=== PATIENT | male | born 1950 | race Caucasian/White ===

== ENCOUNTER 2016-11-24 02:08 | Inpatient (IN) ==
[2016-11-24] MEDS ORDERED: Naloxone 0.4 MG/ML INJ IVP PRN (05:36)
[2016-11-24] MEDS ORDERED: Ondansetron 4 MG/2 ML VIAL IVP PRN (05:36)
[2016-11-24] MEDS ORDERED: *HR* Morphine 2 MG/ML SYRINGE IVP PRN (05:36)
[2016-11-24] MEDS ORDERED: Acetaminophen 325 MG TABLET PO PRN (05:36)
[2016-11-24] MEDS ORDERED: Famotidine 20 MG/2 ML VIAL IVP SCH (06:00)
[2016-11-24 07:21] LABS: INR 1.4; Prothrombin Time 15.3 Seconds (9.4-12.1)
[2016-11-24 07:22] LABS: Basophils % 0.2 %; Hematocrit 40.1 % (37.5-50.1); Hemoglobin 13.9 g/dL (12.9-16.9); Immature Granulocytes % 0.8 % (0-4); Lymphocytes # 0.4 K/mcL (0.6-4.6); Lymphocytes % 3.6 %; Mean Corpuscular HGB Conc 34.7 g/dL (31.6-35.5); Mean Corpuscular Hemoglobin 31.9 pg (28.0-33.3); Monocytes # 0.2 K/mcL (0.0-1.3); Monocytes % 1.5 %; Neutrophils # 11.1 K/mcL (1.6-8.9); Platelet Count 225 K/mcL (140-400); Red Blood Count 4.36 M/mcL (4.19-5.50); Red Cell Distribution Width 13.6 % (11.5-14.5); Segmented Neutrophils % 93.9 %
[2016-11-24 07:40] LABS: BUN/Creatinine Ratio 15 (6-26); Blood Urea Nitrogen 15 mg/dL (8-26); Calcium 9.3 mg/dL (8.6-10.8); Carbon Dioxide 28 mEq/L (19-29); Chloride 94 mEq/L (98-109); Glucose 197 mg/dL (70-99); Osmolality,Calculated 278 (280-300); Potassium 3.7 mEq/L (3.5-4.5); Sodium 131 mEq/L (136-145); eGFR For African Americans > 60 (> 60); eGFR For Non-African Americans > 60 (> 60)
[2016-11-24 07:43] LABS: Chol/HDL Ratio 4.4 (0-4.9); Magnesium 2.2 mg/dL (1.6-2.6)
[2016-11-24] MEDS: 0.9 % Sodium Chloride 1,000 ML IVC SCH ×3 (08:12→11:38)
[2016-11-24] MEDS: *HR* Heparin 5,000 UNIT/ML VIAL SQ SCH ×2 (08:13→17:32)
[2016-11-24] MEDS: Aspirin 81 MG TAB.CHEW PO SCH (08:13)
[2016-11-24] MEDS: Ipratropium/Albuterol Neb 3 ML IH SCH ×5 (08:38→23:46)
--- NOTE | 2016-11-24 09:06 | Internal Med History&Physical ---
Date of Encounter: 11/24/16 Time of Encounter: 09:05 Assessment and Plan (1) DVT prophylaxis Current visit: Yes Status: Acute (2) Sepsis Current visit: Yes Status: Acute Diagnosed based on tachycardia, tachypnea, elevated WBC and pneumonia. Blood cultures drawn at [facility], follow-up results. Check lactic acid. We will provide antibiotic coverage for community-acquired pneumonia. Qualifiers: Sepsis type: sepsis due to unspecified organism Qualified Code(s): A41.9 - Sepsis, unspecified organism (3) Acute exacerbation of chronic obstructive airways disease Current visit: No Status: Acute Inhaled albuterol and ipratropium. Start IV Solu-Medrol. (4) Lingular pneumonia Current visit: No Status: Acute Ceftriaxone and azithromycin. Check Legionella and streptococcal antigens. Check sputum culture. (5) GERD (gastroesophageal reflux disease) Current visit: Yes Status: Acute Start oral Pepcid. Qualifiers: Esophagitis presence: without esophagitis Qualified Code(s): K21.9 - Gastro -esophageal reflux disease without esophagitis (6) Acute respiratory failure with hypoxia Current visit: Yes Status: Acute Oxygen by nasal cannula at maintain saturation above 92%. Check ambulatory oxygen saturation and home oxygen requirements. (7) Tobacco abuse Current visit: Yes Status: Acute I provided smoking cessation counseling. Internal Medicine - H&P: HPI Chief complaint: Shortness of breath Admitted From: Intrahospital Transfer Plans for Post Hospital Care: Home History of present illness: Mr. Rojas is a 66 year old male with past medical history significant for COPD who was transferred from [facility] where he presented for evaluation of shortness of breath. He reports worsening shortness of breath for the last 5 days, today intensity was severe, described as "it can get the air out because of the mucus". Associated with cough sometimes productive of small amounts of green phlegm. Associated with chest pain described as lower left rib cage pain worse with coughing. Denies subjective fevers and chills. Per chart review of [place] his oxygen saturation was 88% on room air. He required 5 L of oxygen by nasal cannula to bring saturation within 93-95 range. He does not use home oxygen. A 10 point review of systems was negative except as above. Past medical history COPD Family history pertinent for appendicular cancer in the patient's father and CAD in the patient's mother Social history: He currently smokes 3-4 cigarettes a day, usually a 10 cigarette per day smoker. Denies alcohol abuse and IV drug use. Past Med Surg Social Fam HX - Past Medical History Medical history: COPD, GERD, valvular heart disease Psychiatric history: no psych history - Social History Smoking Status: Current every day smoker Smokeless Tobacco Status: No Alcohol use: none Drug use: none Internal Medicine - H&P: Meds Albuterol Sulfate [Ventolin Hfa] 18 gm IH Q2H PRN 11/24/16 [History] Budesonide/Formoterol 160/4.5 [Symbicort 160/4.5] 1 puff IH QID 11/24/16 [ History] Ipratropium [Atrovent Inhaler] 0 gm IH Q6HR 11/24/16 [History] 3 Allergy/AdvReac Type Severity Reaction Status Date / Time No Known Allergies Allergy Verified 11/24/16 00:57 All Systems PM: A 10-system review of systems was performed and is negative for pertinent findings except as documented above in the HPI. - Constitutional Vitals: Temp Pulse Resp BP Pulse Ox 97.9 F 83 18 105/64 96 11/24/16 05:49 11/24/16 05:49 11/24/16 05:49 11/24/16 05:49 11/24/16 05:49 General appearance: Present: A&O X 3, no acute distress - Eye Eye exam: Present: PERRL, conjuntiva pink, sclera anicteric Pupils: Present: PERRL - Respiratory Respiratory exam: Present: prolonged expiratory phase, wheezes. Absent: accessory muscle use, rales, rhonchi - Cardiovascular Cardiovascular exam: Present: RRR, +S1, +S2. Absent: diastolic murmur, gallop, rubs, systolic murmur - GI/Abdominal GI/Abdominal exam: Present: normal bowel sounds, soft, no peritoneal signs. Absent: distended, tenderness - Extremities Exam Extremities exam: Present: warm, radial pulses palpable and symmetrical. Absent : calf tenderness, cyanotic, pedal edema - Neurological Exam Neurological exam: Present: CN II-XII intact, oriented X3, no focal deficits. Absent: pronater drift, facial droop, speech deficit - Skin Skin exam: Present: dry, intact Internal Med - H&P Results - Labs CBC & Chem 7: 11/24/16 06:34 11/24/16 06:34 Labs: Short CBC 11/24/16 Range/Units 06:34 WBC 11.9 H (4.3-11.1) K/mcL Hgb 13.9 (12.9-16.9) g/dL Hct 40.1 (37.5-50.1) % Plt Count 225 (140-400) K/mcL Neutrophils # 11.1 H (1.6-8.9) K/mcL BMP 11/24/16 06:34 Sodium 131 L Potassium 3.7 Chloride 94 L Carbon Dioxide 28 BUN 15 Creatinine 0.99 Glucose 197 H Calcium 9.3 Cardiac Enzymes 11/24/16 Range/Units 06:34 Troponin I 0.02 (0-0.03) ng/mL - Impressions Chest x-ray at [facility] personally reviewed. Findings consistent with lingular infiltrate. No pleural effusion. No pneumothorax. Normal heart size.
[2016-11-24] MEDS ORDERED: Azithromycin 500 MG in D5% in Water 250 ML IVPB SCH ×2 (10:00→11:00)
[2016-11-24] MEDS ORDERED: Famotidine 20 MG TABLET PO SCH (10:45)
[2016-11-24] MEDS: Budesonide/Formoterol 160/4.5 MDI IH SCH ×2 (11:16→20:14)
[2016-11-24] MEDS: methylPREDNISolone 125 MG/2 ML VIAL IVP SCH ×3 (11:37→23:43)
[2016-11-24] MEDS: Menthol 9.1 MG LOZENGE PO PRN ×2 (12:54→17:35)
[2016-11-24] MEDS: Famotidine 20 MG TABLET PO SCH (20:36)
[2016-11-25] MEDS: Ipratropium/Albuterol Neb 3 ML IH SCH ×6 (03:42→23:14)
[2016-11-25] MEDS: *HR* Heparin 5,000 UNIT/ML VIAL SQ SCH ×2 (05:24→17:32)
[2016-11-25] MEDS: methylPREDNISolone 125 MG/2 ML VIAL IVP SCH ×3 (05:24→23:50)
[2016-11-25] MEDS: 0.9 % Sodium Chloride 1,000 ML IVC SCH ×2 (05:30→22:12)
[2016-11-25] MEDS ORDERED: *HR* Dextrose 50 % in Water (Syg) 50 ML SYRINGE IVP PRN (07:29)
[2016-11-25] MEDS ORDERED: Dextrose Gel 15 GM PO PRN ×2 (07:29)
[2016-11-25] MEDS ORDERED: D5% in Water 1,000 ML IVC PRN (07:29)
[2016-11-25] MEDS: Budesonide/Formoterol 160/4.5 MDI IH SCH ×2 (08:01→20:15)
[2016-11-25 08:56] LABS: Basophils % 0.1 %; Hematocrit 36.7 % (37.5-50.1); Hemoglobin 12.6 g/dL (12.9-16.9); Immature Platelets 4.3 % (1.1-6.1); Lymphocytes # 0.6 K/mcL (0.6-4.6); Lymphocytes % 3.4 %; Mean Corpuscular HGB Conc 34.3 g/dL (31.6-35.5); Mean Corpuscular Hemoglobin 32.3 pg (28.0-33.3); Mean Corpuscular Volume 94.1 fL (83.0-100.0); Mean Platelet Volume 9.9 fL (9.4-12.4); Monocytes # 0.5 K/mcL (0.0-1.3); Monocytes % 2.8 %; Neutrophils # 15.4 K/mcL (1.6-8.9); Platelet Count 220 K/mcL (140-400); Segmented Neutrophils % 92.7 %
[2016-11-25] MEDS: Insulin LISPRO 300 UNITS/3 ML VIAL SQ SCH ×4 (09:06→21:27)
[2016-11-25 09:07] LABS: BUN/Creatinine Ratio 18 (6-26); Blood Urea Nitrogen 14 mg/dL (8-26); Calcium 8.7 mg/dL (8.6-10.8); Carbon Dioxide 23 mEq/L (19-29); Chloride 105 mEq/L (98-109); Glucose 200 mg/dL (70-99); Osmolality,Calculated 290 (280-300); Potassium 3.5 mEq/L (3.5-4.5); Sodium 137 mEq/L (136-145); eGFR For African Americans > 60 (> 60); eGFR For Non-African Americans > 60 (> 60)
[2016-11-25] MEDS: Aspirin 81 MG TAB.CHEW PO SCH (09:07)
[2016-11-25] MEDS: Famotidine 20 MG TABLET PO SCH ×2 (09:07→21:27)
[2016-11-25] MEDS: Azithromycin 500 MG in D5% in Water 250 ML IVPB SCH (09:09)
--- NOTE | 2016-11-25 11:10 | Cardiology Consult Note ---
Date of Encounter: 11/25/16 Time of Encounter: 11:08 Assessment and Plan (1) Atrial fibrillation with RVR Current Visit: Yes Status: Acute Reportedly a new diagnosis in setting of PNA and sepsis. Pt has no known hx of A -Fib, although has hx of palpitations. HR currently 90s-120s on Cardizem gtt at 5mg/hr. Uptitrate as needed to keep HR <100. Once rate controlled on IV cardizem, will transition to PO. K 3.5. Mag pending. Check TSH. Troponins negative x 3. Reports hx of valvular disease--vague description. Check echo to evaluate structure and function. [id number] score of 1 (Age), which does not warrant intermediate project manager anticoagulation. Continue ASA only for now and subq heparin for DVT prophylaxis. Continue to follow. (2) Tobacco abuse Current Visit: Yes Status: Acute Smoking cessation counseling given. Discussion w patient/family: The assessment and plan as outlined above was discussed with the patient and/or family members who expressed understanding and agreement. All questions were answered. Thank you for involving us in the care of your patient. Please call with any questions. I will discuss all the above with Dr. Coles and make changes as necessary. History of Present Illness Consult date: 11/25/16 Requesting physician: Louis Roman Consult reason: A-Fib RVR Chief complaint: Dyspnea History of present illness: Mr. Rojas is a 66 year old male with past medical history significant for COPD, tobacco abuse and reportedly a valve issue diagnosed in 2000, who was transferred from [facility] where he presented for evaluation of shortness of breath. He reports worsening shortness of breath for the last 5 days, associated with cough sometimes productive of small amounts of green phlegm. He reports pleuritic chest pain--only when coughing. Per chart review of [place] his oxygen saturation was 88% on room air. He required 5 L of oxygen by nasal cannula to bring saturation within 93-95 range. He does not use home oxygen. He was found to be in A-Fib with RVR and cardiology was consulted. Pt has no known hx of A-Fib. He does report having intermittent palpitations. Currently on Cardizem gtt at 5mg/hr, HR 90s-120. He is being treated for PNA and sepsis. Past Med Surg Social Fam HX - Past Medical History Medical history: COPD, GERD, valvular heart disease Psychiatric history: no psych history - Social History Smoking Status: Current every day smoker Smokeless Tobacco Status: No Alcohol use: none Drug use: none Medications and Allergies Albuterol Sulfate [Ventolin Hfa] 18 gm IH Q2H PRN 11/24/16 [History] Budesonide/Formoterol 160/4.5 [Symbicort 160/4.5] 1 puff IH QID 11/24/16 [ History] Ipratropium [Atrovent Inhaler] 0 gm IH Q6HR 11/24/16 [History] 3 Allergy/AdvReac Type Severity Reaction Status Date / Time No Known Allergies Allergy Verified 11/24/16 00:57 All Systems Review: A 10-system review of systems was performed and is negative for pertinent findings except as documented above in the HPI. - Cardiovascular Cardiovascular: as per HPI, dyspnea at rest, dyspnea on exertion, palpitations Physical Examination Vital Signs, Last 4 Hours Temp Pulse Resp BP Pulse Ox 11/25/16 09:37 97.8 F 117 16 109/61 93 11/25/16 08:31 97.7 F 107 14 112/52 96 11/25/16 08:22 96 11/25/16 08:04 18 93 Vital Signs Temp Pulse Resp BP Pulse Ox 11/25/16 09:37 97.8 F 117 16 109/61 93 11/25/16 08:31 97.7 F 107 14 112/52 96 11/25/16 08:22 96 11/25/16 08:04 18 93 11/25/16 06:40 97.7 F 95 16 110/69 98 11/25/16 06:25 97.8 F 100 16 117/56 97 11/25/16 06:11 97.8 F 105 16 103/60 98 11/25/16 05:55 97.9 F 102 18 108/47 93 11/25/16 05:50 97.8 F 110 18 99/52 93 11/25/16 05:46 97.9 F 104 16 108/55 93 11/25/16 04:35 97.9 F 108 16 123/66 93 11/25/16 03:43 16 94 11/24/16 23:55 97.4 F L 81 15 117/58 98 11/24/16 23:47 18 97 11/24/16 20:15 16 97 11/24/16 19:35 97.8 F 77 16 118/72 96 11/24/16 15:44 16 99 11/24/16 15:36 98.3 F 73 17 112/68 99 11/24/16 11:23 97.4 F L 75 17 95/53 100 11/24/16 11:16 16 96 Intake and Output 11/24/16 11/25/16 11/25/16 23:59 07:59 15:59 Intake Total 250 / 250 750 / 750 360 / 360 Output Total 175 / 175 200 / 200 0 / 0 Balance 75 / 75 550 / 550 360 / 360 Intake: IV Fluids 250 / 250 750 / 750 0.9 % Sodium Chloride 1,000 ML 250 / 250 750 / 750 @ 60 mls/hr IVC .[id number] [facility] Rx #:[id number] Oral 360 / 360 Output: Urine 175 / 175 200 / 200 0 / 0 Other: Meal Breakfast Percent of Meal Consumed 100% Weight 66 kg Blood Glucose* 226 206 Patient Weight 11/25/16 23:59 Weight 66 kg General: Conversant, No Apparent Distress HEENT: Atraumatic, Normocephaly, Mucus Membranes Moist Neck: No JVD, Normal carotid pulses Cardiac: Other (irregularly irregular 2/6 murmur noted.) Lungs: Other (rhonchi noted) Neuro: Alert and responsive, No focal deficits noted Abdomen: Soft, Non-Tender Skin: No rashes noted on visualized skin Musculoskeletal: No Chest Wall Tenderness Extremities: No Clubbing, No Cyanosis, No Edema, Normal Pulses Results 11/25/16 08:50 11/25/16 08:50 Lab Results 11/24/16 11/24/16 11/25/16 12:34 18:33 08:50 WBC 16.6 H Hgb 12.6 L Hct 36.7 L Plt Count 220 Sodium Potassium Chloride Carbon Dioxide BUN Creatinine Glucose Calcium Magnesium Troponin I 0.01 0.02 11/25/16 08:50 WBC Hgb Hct Plt Count Sodium 137 Potassium 3.5 Chloride 105 Carbon Dioxide 23 BUN 14 Creatinine 0.77 Glucose 200 H Calcium 8.7 Magnesium 2.0 Troponin I Short CBC 11/25/16 Range/Units 08:50 WBC 16.6 H (4.3-11.1) K/mcL Hgb 12.6 L (12.9-16.9) g/dL Hct 36.7 L (37.5-50.1) % Plt Count 220 (140-400) K/mcL Neutrophils # 15.4 H (1.6-8.9) K/mcL BMP 11/25/16 Range/Units 08:50 Sodium 137 (136-145) mEq/L Potassium 3.5 (3.5-4.5) mEq/L Chloride 105 (98-109) mEq/L Carbon Dioxide 23 (19-29) mEq/L BUN 14 (8-26) mg/dL Creatinine 0.77 (0.72-1.25) mg/dL Glucose 200 H (70-99) mg/dL Calcium 8.7 (8.6-10.8) mg/dL Cardiac Enzymes 11/24/16 11/24/16 Range/Units 18:33 12:34 Troponin I 0.02 0.01 (0-0.03) ng/mL Active Medications Acetaminophen (Tylenol) 650 mg PO Q6HR PRN PRN Reason: Mild Pain (1-3) Stop: 05/26/17 05:37 Albuterol/Ipratropium (Duoneb) 3 ml IH [id number] [facility] Stop: 05/26/17 08:01 Last Admin: 11/25/16 08:01 Dose: 3 ml Aspirin (Aspirin) 81 mg PO DAILY [facility] Stop: 05/26/17 09:01 Last Admin: 11/25/16 09:07 Dose: 81 mg Budesonide/Formoterol Fumarate (Symbicort) 1 puff IH BIDR [facility] PRN Reason: Protocol Stop: 05/26/17 10:01 Last Admin: 11/25/16 08:01 Dose: 1 puff Dextrose/Water (Dextrose 50% (Syg)) 25 ml IVP AD PRN PRN Reason: Hypoglycemia Stop: 05/27/17 07:30 Famotidine (Pepcid) 20 mg PO BID [facility] PRN Reason: Protocol Stop: 05/26/17 21:01 Last Admin: 11/25/16 09:07 Dose: 20 mg Glucagon (Glucagen) 1 mg IM ONCE PRN PRN Reason: Hypoglycemia Stop: 05/27/17 07:30 Glucose (Gluctose) 15 gm PO ONCE PRN PRN Reason: Hypoglycemia Stop: 05/27/17 07:30 Glucose (Gluctose) 30 gm PO ONCE PRN PRN Reason: Hypoglycemia Stop: 05/27/17 07:30 Guaifenesin (Robitussin/Dm) 10 ml PO Q6HR PRN PRN Reason: Cough Stop: 05/26/17 10:39 Last Admin: 11/24/16 11:38 Dose: 10 ml Heparin Sodium (Porcine) (Heparin) 5,000 unit SQ Q12HR [facility] Stop: 05/26/17 06:01 Last Admin: 11/25/16 05:24 Dose: 5,000 unit Sodium Chloride (0.9 % Sodium Chloride) 1,000 mls @ 60 mls/hr IVC .[id number] [facility] Stop: 05/26/17 05:46 Last Admin: 11/25/16 05:30 Dose: 60 mls/hr Ceftriaxone Sodium 1,000 mg/ (Dextrose) 100 mls @ 200 mls/hr IVPB DAILY [facility] Stop: 05/26/17 09:01 Last Admin: 11/25/16 09:08 Dose: 200 mls/hr Azithromycin 500 mg/ Dextrose 250 mls @ 252 mls/hr IVPB Q24H [facility] Stop: 05/27/17 10:01 Last Admin: 11/25/16 09:09 Dose: 252 mls/hr Dextrose (Dextrose 5%) 1,000 mls @ 100 mls/hr IVC .Q10H PRN PRN Reason: HYPOGLYCEMIA Stop: 05/27/17 07:30 Diltiazem HCl 125 mg/ Dextrose 125 mls @ 5 mls/hr IVC .Q24H [facility]; 5 MG/HR PRN Reason: Protocol Stop: 05/27/17 05:16 Insulin Human Lispro (Humalog) 0 units SQ HS [facility] PRN Reason: Protocol Stop: 05/27/17 21:01 Insulin Human Lispro (Humalog) 0 units SQ TIDAC [facility] PRN Reason: Protocol Stop: 05/27/17 07:31 Last Admin: 11/25/16 09:06 Dose: 4 units Menthol (Cough Drops) 9.1 mg PO Q2H PRN PRN Reason: Cough Stop: 05/26/17 10:39 Last Admin: 11/24/16 17:35 Dose: 9.1 mg Methylprednisolone (Solu-Medrol) 60 mg IVP Q6HR [facility] Stop: 05/26/17 12:01 Last Admin: 11/25/16 05:24 Dose: 60 mg Morphine Sulfate (Morphine Sulfate) 2 mg IVP Q4HR PRN PRN Reason: Severe Pain (7-10) Stop: 05/26/17 05:37 Naloxone HCl (Narcan) 0.4 mg IVP Q2MIN PRN PRN Reason: Opioid Reversal Stop: 05/26/17 05:37 Ondansetron HCl (Zofran) 4 mg IVP Q8HR PRN PRN Reason: Nausea And Vomiting Stop: 05/26/17 05:37 Simvastatin (Zocor) 20 mg PO HS [facility] PRN Reason: Protocol Stop: 05/26/17 21:01 Last Admin: 11/24/16 20:36 Dose: 20 mg - EKG Interpretation EKG results cardiology: personally reviewed (A-Fib RVR, rate 138, RBBB), other ( 12 hr tele AVG HR 94, PAF) Consult Discharge Plan - Plan Referrals: NONE,PCP [Primary Care Provider] -
--- NOTE | 2016-11-25 15:41 | Internal Med Progress Note ---
<MarkfrancescaAlice rachel - Last Filed: 11/25/16 15:39> Date of Encounter: 11/25/16 Time of Encounter: 10:00 - Assessment and plan (1) Sepsis Current Visit: Yes Status: Acute Assessment and plan: Diagnosis based on tachycardia, tachypnea, elevated white blood cell, and pneumonia. -Follow-up blood cultures at [facility]. -Lactic acid 3.1 on admission down to 2.1 today. -Day to azithromycin and ceftriaxone antibiotic coverage for community-acquired pneumonia. Qualifiers: Sepsis type: sepsis due to unspecified organism Qualified Code(s): A41.9 - Sepsis, unspecified organism (2) Pneumonia Current Visit: Yes Status: Acute Assessment and plan: -See above antibiotic coverage for community-acquired pneumonia, azithromycin and ceftriaxone. -Follow-up sputum cultures. -Follow-up Legionella and streptococcal antigens. -Patient receiving every 6 hours IV Solu-Medrol. -Add sliding scale insulin as Solu-Medrol likely causing hyperglycemia. -Continue duo nebs. Qualifiers: Pneumonia type: due to unspecified organism Laterality: unspecified laterality Lung location: unspecified part of lung Qualified Code(s): J18.9 - Pneumonia, unspecified organism (3) Atrial fibrillation with RVR Current Visit: Yes Status: Acute Assessment and plan: Patient was placed on a Cardizem drip overnight for tachycardia. -Continue Cardizem drip for rate control under 100. Once control, will transition to by mouth. -EKG showed new onset atrial fibrillation. -We will order TSH, magnesium, and TTE. -All up cardiology recommendations. -Chads VASC score of 1. (4) Acute respiratory failure with hypoxia Current Visit: Yes Status: Acute Assessment and plan: Titrate up oxygen by nasal cannula to maintain saturation above 92%. (5) GERD (gastroesophageal reflux disease) Current Visit: Yes Status: Acute Assessment and plan: Pepcid. Qualifiers: Esophagitis presence: without esophagitis Qualified Code(s): K21.9 - Gastro -esophageal reflux disease without esophagitis (6) Tobacco abuse Current Visit: Yes Status: Acute Assessment and plan: Smoking cessation. (7) DVT prophylaxis Current Visit: Yes Status: Acute Assessment and plan: Heparin subcutaneous. - Subjective Interval history: 66-year-old male with past medical history of COPD presents to the emergency department with shortness of breath and chest a productive cough. He was admitted for sepsis the basis of tachycardia, tachypnea, leukocytosis, pneumonia. This morning, patient is resting comfortably, however, he is still coughing considerably. He states he is having a hard time catching his breath, however, he feels minimally better from yesterday. - Constitutional Vitals: Temp Pulse Resp BP Pulse Ox 97.8 F 97 18 117/52 98 11/25/16 11:22 11/25/16 13:28 11/25/16 15:29 11/25/16 13:28 11/25/16 15:29 General appearance: Present: A&O X 3, no acute distress - Respiratory Respiratory exam: Present: rhonchi, wheezes. Absent: accessory muscle use, rales, respiratory distress - Cardiovascular Cardiovascular exam: Present: RRR, +S1, +S2. Absent: diastolic murmur, gallop, rubs, systolic murmur - GI/Abdominal GI/Abdominal exam: Present: normal bowel sounds, soft, no peritoneal signs. Absent: distended, tenderness - Extremities Exam Extremities exam: Present: warm, radial pulses palpable and symmetrical. Absent : calf tenderness, cyanotic, pedal edema Internal Medicine: Result - Labs CBC & Chem 7: 11/25/16 08:50 11/25/16 08:50 Labs: Short CBC 11/25/16 Range/Units 08:50 WBC 16.6 H (4.3-11.1) K/mcL Hgb 12.6 L (12.9-16.9) g/dL Hct 36.7 L (37.5-50.1) % Plt Count 220 (140-400) K/mcL Neutrophils # 15.4 H (1.6-8.9) K/mcL BMP 11/25/16 08:50 Sodium 137 Potassium 3.5 Chloride 105 Carbon Dioxide 23 BUN 14 Creatinine 0.77 Glucose 200 H Calcium 8.7 Cardiac Enzymes 11/24/16 Range/Units 18:33 Troponin I 0.02 (0-0.03) ng/mL - ABG Interpretation ABG results: PT/INR, D-dimer PT 15.3 Seconds (9.4-12.1) H 11/24/16 06:34 Consult Discharge Plan - Plan Referrals: NONE,PCP [Primary Care Provider] - <Ambreen Ruby - Last Filed: 11/25/16 16:00> Date of Encounter: 11/25/16 - Constitutional Vitals: Temp Pulse Resp BP Pulse Ox 97.8 F 97 18 117/52 98 11/25/16 11:22 11/25/16 13:28 11/25/16 15:29 11/25/16 13:28 11/25/16 15:29 Internal Medicine: Result - Labs CBC & Chem 7: 11/25/16 08:50 11/25/16 08:50 Labs: Short CBC 11/25/16 Range/Units 08:50 WBC 16.6 H (4.3-11.1) K/mcL Hgb 12.6 L (12.9-16.9) g/dL Hct 36.7 L (37.5-50.1) % Plt Count 220 (140-400) K/mcL Neutrophils # 15.4 H (1.6-8.9) K/mcL BMP 11/25/16 08:50 Sodium 137 Potassium 3.5 Chloride 105 Carbon Dioxide 23 BUN 14 Creatinine 0.77 Glucose 200 H Calcium 8.7 Cardiac Enzymes 11/24/16 Range/Units 18:33 Troponin I 0.02 (0-0.03) ng/mL - ABG Interpretation ABG results: PT/INR, D-dimer PT 15.3 Seconds (9.4-12.1) H 11/24/16 06:34 - Attending Attestation I saw and examined the patient independently. I have discussed with resident Dr Florentino regarding the management plan. Agree with the documentation. Patient was admitted as pneumonia and COPD exacerbation. He is treated with IV azithromycin, Rocephin, steroids, and bronchodilator. This morning patient did develop A. fib with RVR, probably induced by COPD exacerbation. On Cardizem drip and baby aspirin. Cardiology consult and follow-up appreciated. Patient feels less shortness of breath after treatment. Will continue current treatment and closely monitor patient.
--- NOTE | 2016-11-25 18:02 | Electrocardiograph Report ---
[place] [address] Test Date: 2016-11-24 Pat Name: Geovanni Rojas Department: 115 Room: 3A24 Gender: M Plant Engineering Manager: : 1950 Requested By: Golden Anne Order Number: [id number] Reading MD: Long Gonzalez MD Measurements Intervals [place] Rate: 79 P: 73 [place]: 140 QRS: 80 QRSD: 122 T: 31 QT: 379 QTc: 413 Interpretive Statements SINUS RHYTHM RIGHT BUNDLE BRANCH BLOCK Electronically Signed On 11-25-2016 18:00:26 EDT by Long Gonzalez MD
--- NOTE | 2016-11-25 18:11 | Electrocardiograph Report ---
[address] [place], [place] [address] Test Date: 2016-11-25 Pat Name: Geovanni Rojas Department: 115 Room: 3A24 Gender: M Manager Inspection: : 1950 Requested By: Ambreen Ruby Order Number: [id number] Reading MD: Long Gonzalez MD Measurements Intervals [place] Rate: 138 P: [place]: 0 QRS: 77 QRSD: 125 T: -7 QT: 310 QTc: 391 Interpretive Statements ATRIAL FIBRILLATION WITH RAPID VENTRICULAR RESPONSE RIGHT BUNDLE BRANCH BLOCK Electronically Signed On 11-25-2016 18:10:03 EDT by Long Gonzalez MD
[2016-11-26] MEDS: Ipratropium/Albuterol Neb 3 ML IH SCH ×6 (03:13→23:43)
[2016-11-26 04:13] LABS: Basophils % 0.1 %; Hematocrit 36.5 % (37.5-50.1); Hemoglobin 12.4 g/dL (12.9-16.9); Lymphocytes # 0.8 K/mcL (0.6-4.6); Lymphocytes % 4.3 %; Mean Corpuscular Hemoglobin 32.1 pg (28.0-33.3); Mean Corpuscular Volume 94.6 fL (83.0-100.0); Mean Platelet Volume 10.1 fL (9.4-12.4); Monocytes # 0.6 K/mcL (0.0-1.3); Monocytes % 3.2 %; Neutrophils # 15.7 K/mcL (1.6-8.9); Platelet Count 239 K/mcL (140-400); Red Blood Count 3.86 M/mcL (4.19-5.50); Red Cell Distribution Width 14.2 % (11.5-14.5); Segmented Neutrophils % 90.4 %
[2016-11-26 04:24] LABS: BUN/Creatinine Ratio 17 (6-26); Blood Urea Nitrogen 15 mg/dL (8-26); Calcium 8.9 mg/dL (8.6-10.8); Carbon Dioxide 22 mEq/L (19-29); Chloride 105 mEq/L (98-109); Glucose 189 mg/dL (70-99); Osmolality,Calculated 292 (280-300); Potassium 4.2 mEq/L (3.5-4.5); Sodium 138 mEq/L (136-145); eGFR For African Americans > 60 (> 60); eGFR For Non-African Americans > 60 (> 60)
[2016-11-26] MEDS: *HR* Heparin 5,000 UNIT/ML VIAL SQ SCH ×2 (05:23→16:36)
[2016-11-26] MEDS: Budesonide/Formoterol 160/4.5 MDI IH SCH ×2 (07:38→20:13)
[2016-11-26] MEDS: Aspirin 81 MG TAB.CHEW PO SCH (08:33)
[2016-11-26] MEDS: methylPREDNISolone 125 MG/2 ML VIAL IVP SCH ×2 (08:33→16:36)
[2016-11-26] MEDS: Azithromycin 500 MG in D5% in Water 250 ML IVPB SCH (08:34)
[2016-11-26] MEDS: Famotidine 20 MG TABLET PO SCH ×2 (08:34→20:28)
[2016-11-26] MEDS: Insulin LISPRO 300 UNITS/3 ML VIAL SQ SCH ×4 (08:35→20:28)
--- NOTE | 2016-11-26 10:08 | Internal Med Progress Note ---
Date of Encounter: 11/26/16 Time of Encounter: 10:06 - Assessment and plan (1) Atrial fibrillation with RVR Current Visit: Yes Status: Acute Assessment and plan: New onset in the setting of low TSH, acute COPD and sepsis. Heart rate better controlled, continue IV Cardizem drip, currently at 12.5 mg/h. Cardiology on board. Echocardiogram shows preserved ejection fraction, indeterminate diastolic function, mild mitral regurgitation. CHADS-VASC 2 score is 1. Continue ASA. (2) Pneumonia Current Visit: Yes Status: Acute Assessment and plan: Patient presented with tachycardia, mild leukocytosis, acute hypoxemia. Chest x -ray shows left lingular atelectasis versus infiltrate. Continue IV Rocephin and azithromycin. Blood cultures and sputum culture show no bacterial growth. Supportive care, supplemental oxygen as needed. Qualifiers: Pneumonia type: due to unspecified organism Laterality: left Lung location: unspecified part of lung Qualified Code(s): J18.9 - Pneumonia, unspecified organism (3) Acute exacerbation of chronic obstructive airways disease Current Visit: Yes Status: Acute Assessment and plan: Patient continues to have cough, chest congestion and wheezing. Continue high- dose IV steroids, scheduled bronchodilators, supplemental oxygen. Will add when necessary Tessalon and scheduled inhalational Mucomyst. Continues to require 2-3 L/m supplemental oxygen via nasal cannula. Patient may need home oxygen evaluation prior to discharge. (4) Sepsis Current Visit: Yes Status: Resolved Assessment and plan: Likely secondary to pneumonia. Plan as above. Persistent leukocytosis likely due to the use of IV steroids. Qualifiers: Sepsis type: sepsis due to unspecified organism Qualified Code(s): A41.9 - Sepsis, unspecified organism (5) Acute respiratory failure with hypoxia Current Visit: Yes Status: Acute Assessment and plan: Due to pneumonia and acute exacerbation of COPD. Continue treatment of underlying conditions as above. (6) Tobacco abuse Current Visit: Yes Status: Chronic Assessment and plan: Continue nicotine transdermal patch. - Subjective Interval history: Continues to have chest congestion, cough, wheezing. No chest pain, palpitations ; does not have PCP, nebulizer or home O2. - Constitutional Vitals: Temp Pulse Resp BP Pulse Ox 98.0 F 59 16 108/62 98 11/26/16 07:32 11/26/16 07:32 11/26/16 07:39 11/26/16 07:32 11/26/16 07:39 General appearance: Present: A&O X 3, answers questions appropriately - Respiratory Respiratory exam: Present: wheezes (B/L diffuse wheezing anteriorly and posteriorly). Absent: accessory muscle use, rales, rhonchi - Cardiovascular Cardiovascular exam: Present: irregular rhythm, +S1, +S2. Absent: diastolic murmur, gallop, rubs, systolic murmur - GI/Abdominal GI/Abdominal exam: Present: normal bowel sounds, soft, no peritoneal signs. Absent: distended, tenderness - Extremities Exam Extremities exam: Present: full ROM, warm, radial pulses palpable and symmetrical. Absent: calf tenderness, cyanotic, pedal edema - Neurological Exam Neurological exam: Present: CN II-XII intact, oriented X3, no focal deficits. Absent: pronater drift, facial droop, speech deficit Internal Medicine: Result - Labs CBC & Chem 7: 11/26/16 03:32 11/26/16 03:32 Labs: Short CBC 11/26/16 Range/Units 03:32 WBC 17.4 H (4.3-11.1) K/mcL Hgb 12.4 L (12.9-16.9) g/dL Hct 36.5 L (37.5-50.1) % Plt Count 239 (140-400) K/mcL Neutrophils # 15.7 H (1.6-8.9) K/mcL BMP 11/25/16 11/26/16 08:50 03:32 Sodium 137 138 Potassium 3.5 4.2 Chloride 105 105 Carbon Dioxide 23 22 BUN 14 15 Creatinine 0.77 0.87 Glucose 200 H 189 H Calcium 8.7 8.9 - ABG Interpretation ABG results: PT/INR, D-dimer PT 15.3 Seconds (9.4-12.1) H 11/24/16 06:34 Consult Discharge Plan - Plan Referrals: NONE,PCP [Primary Care Provider] -
[2016-11-26] MEDS ORDERED: Benzonatate 100 MG CAPSULE PO PRN (10:10)
[2016-11-26] MEDS: Acetylcysteine 10% 2 ML INHSOL IH SCH ×5 (10:39→23:43)
--- NOTE | 2016-11-26 11:30 | Cardiology Progress Note ---
Date of Encounter: 11/26/16 Time of Encounter: 11:28 Assessment and Plan (1) Atrial fibrillation with RVR Current Visit: Yes Status: Acute Reportedly a new diagnosis in setting of PNA and sepsis. Pt has no known hx of A -Fib, although has hx of palpitations. HR currently 90s-100s on Cardizem gtt at 12.5mg/hr. Will transition to PO Cardizem CD 360mg daily. Troponins negative x 3. K 4.2, TSH 0.249--hyperthyroidism. Primary team to manage. Echo resulted--EF 60-65%, mild MR. [id number] score of 1 (Age), which does not warrant halfway anticoagulation. Continue ASA only for now and subq heparin for DVT prophylaxis. Will check on HR later this afternoon and if rate controlled on PO cardizem, will sign off with outpt follow-up. (2) Tobacco abuse Current Visit: Yes Status: Acute Smoking cessation counseling given. Discussion w patient/family: The assessment and plan as outlined above was discussed with the patient and/or family members who expressed understanding and agreement. All questions were answered. Thank you for involving us in the care of your patient. Please call with any questions. I will discuss all the above with Dr. Coles and make changes as necessary. Subjective Principal diagnosis: A-Fib RVR, PNA Interval history: HR currently 90s-100s on Cardizem gtt at 12.5mg/hr. Echo resulted--EF preserved , mild MR. Pt denies cardiac complaints this AM, reports feeling better today. Objective Vital Signs, Last 4 Hours Temp Pulse Resp BP Pulse Ox 11/26/16 10:40 97.9 F 101 20 118/62 92 11/26/16 07:39 16 98 11/26/16 07:32 98.0 F 59 16 108/62 98 Vital Signs Temp Pulse Resp BP Pulse Ox 11/26/16 10:40 97.9 F 101 20 118/62 92 11/26/16 07:39 16 98 11/26/16 07:32 98.0 F 59 16 108/62 98 11/26/16 03:13 21 92 11/26/16 03:05 97.6 F 99 14 108/60 99 11/25/16 23:41 97.8 F 70 14 106/46 98 10/16/17 23:14 20 98 11/25/16 20:15 97.9 F 86 21 121/66 96 11/25/16 16:26 98.1 F 110 16 115/48 97 11/25/16 16:25 98.1 F 115 16 107/65 95 11/25/16 15:29 18 98 11/25/16 15:22 98.2 F 102 14 108/54 94 11/25/16 13:28 97 14 117/52 96 Intake and Output 11/25/16 11/26/16 11/26/16 23:59 07:59 15:59 Intake Total 1580 / 1580 470 / 470 600 / 600 Output Total 600 / 600 350 / 350 200 / 200 Balance 980 / 980 120 / 120 400 / 400 Intake: IV Fluids 1100 / 1100 350 / 350 0.9 % Sodium Chloride 1,000 ML 1000 / 1000 @ 60 mls/hr IVC .[id number] LARRY Rx #:[id number] Cardizem 125 MG In Dextrose 5% 100 / 100 100 / 100 100 ML @ 5 MG/HR 5 mls/hr IVC . Q24H LARRY Rx#:[id number] Zithromax 500 mg In Dextrose 5% 250 / 250 250 ML @ 252 mls/hr IVPB Q24H LARRY Rx#:[id number] Oral 360 / 360 120 / 120 600 / 600 Tube Feeding 120 / 120 Output: Urine 600 / 600 350 / 350 200 / 200 Other: Meal Dinner Breakfast Percent of Meal Consumed 100% 100% Stool Size Small Stool Consistency soft Stool Color Brown # Bowel Movements 0 1 Weight 65.816 kg Blood Glucose* 228 197 248 Patient Weight 11/26/16 23:59 Weight 65.816 kg General: Conversant, No Apparent Distress HEENT: Atraumatic, Normocephaly, Mucus Membranes Moist Neck: No JVD, Normal carotid pulses Cardiac: Other (irregularly irregular rhythm) Lungs: Other (wheezes bilaterally) Neuro: Alert and responsive, No focal deficits noted Abdomen: Soft, Non-Tender Skin: No rashes noted on visualized skin Musculoskeletal: No Chest Wall Tenderness Extremities: No Clubbing, No Cyanosis, No Edema, Normal Pulses Results 11/26/16 03:32 11/26/16 03:32 Lab Results 11/26/16 11/26/16 11/26/16 03:32 03:32 03:32 WBC 17.4 H Hgb 12.4 L Hct 36.5 L Plt Count 239 Sodium 138 Potassium 4.2 Chloride 105 Carbon Dioxide 22 BUN 15 Creatinine 0.87 Glucose 189 H Calcium 8.9 TSH 0.249 L Short CBC 11/26/16 Range/Units 03:32 WBC 17.4 H (4.3-11.1) K/mcL Hgb 12.4 L (12.9-16.9) g/dL Hct 36.5 L (37.5-50.1) % Plt Count 239 (140-400) K/mcL Neutrophils # 15.7 H (1.6-8.9) K/mcL BMP 11/26/16 Range/Units 03:32 Sodium 138 (136-145) mEq/L Potassium 4.2 (3.5-4.5) mEq/L Chloride 105 (98-109) mEq/L Carbon Dioxide 22 (19-29) mEq/L BUN 15 (8-26) mg/dL Creatinine 0.87 (0.72-1.25) mg/dL Glucose 189 H (70-99) mg/dL Calcium 8.9 (8.6-10.8) mg/dL Impressions Echocardiogram 11/25/16 10:43 Impressions: LVEF 60-65%. Normal LV chamber size, wall thickness and function. Indeterminate diastolic function. Normal right ventricular structure and function. Mild mitral regurgitation. No evidence of pulmonary hypertension. Left Ventricular Wall Motion: Rest Echo Findings All wall segments showed normal motion. Findings: Study Quality * Technically adequate exam. ECG Findings * Atrial fibrillation. Left Ventricle * LVEF 60-65%. * Normal LV chamber size, wall thickness and function. * Indeterminate diastolic function. Right Ventricle * Normal right ventricular structure and function. Left Atrium * Mildly dilated left atrium. Right Atrium * Mildly dilated right atrium. Interatrial Septum * Interatrial septum not well evaluated. Aortic Valve * Trileaflet aortic valve with normal function. * No aortic regurgitation. * No aortic stenosis. Mitral Valve * Normal mitral valve structure. * Mild mitral regurgitation. * No mitral stenosis. Tricuspid Valve * Normal tricuspid valve structure and function. * Trace tricuspid regurgitation. * No evidence of pulmonary hypertension. Pulmonic Valve * Normal pulmonic valve structure and function. * Trace pulmonic regurgitation. Aorta * Normally sized aortic root. Pericardium * The pericardium appears normal. IVC * Normal IVC dimensions and inspiratory collapse. Pulmonary Artery * Normal visualized portions of the main pulmonary artery. Active Medications Acetaminophen (Tylenol) 650 mg PO Q6HR PRN PRN Reason: Mild Pain (1-3) Stop: 05/26/17 05:37 Acetylcysteine (Acetylcysteine 10%) 2 ml IH [id number] LARRY Stop: 05/28/17 10:16 Last Admin: 11/26/16 10:39 Dose: Not Given Albuterol/Ipratropium (Duoneb) 3 ml IH [id number] [facility]ARRY Stop: 05/26/17 08:01 Last Admin: 11/26/16 07:38 Dose: 3 ml Aspirin (Aspirin) 81 mg PO DAILY [facility] Stop: 05/26/17 09:01 Last Admin: 11/26/16 08:33 Dose: 81 mg Benzonatate (Tessalon) 100 mg PO TID PRN PRN Reason: Cough Stop: 05/28/17 10:11 Budesonide/Formoterol Fumarate (Symbicort) 1 puff IH BIDR LARRY PRN Reason: Protocol Stop: 05/26/17 10:01 Last Admin: 11/26/16 07:38 Dose: 1 puff Dextrose/Water (Dextrose 50% (Syg)) 25 ml IVP AD PRN PRN Reason: Hypoglycemia Stop: 05/27/17 07:30 Famotidine (Pepcid) 20 mg PO BID LARRY PRN Reason: Protocol Stop: 05/26/17 21:01 Last Admin: 11/26/16 08:34 Dose: 20 mg Glucagon (Glucagen) 1 mg IM ONCE PRN PRN Reason: Hypoglycemia Stop: 05/27/17 07:30 Glucose (Gluctose) 15 gm PO ONCE PRN PRN Reason: Hypoglycemia Stop: 05/27/17 07:30 Glucose (Gluctose) 30 gm PO ONCE PRN PRN Reason: Hypoglycemia Stop: 05/27/17 07:30 Guaifenesin (Robitussin/Dm) 10 ml PO Q6HR PRN PRN Reason: Cough Stop: 05/26/17 10:39 Last Admin: 11/24/16 11:38 Dose: 10 ml Heparin Sodium (Porcine) (Heparin) 5,000 unit SQ Q12HR [facility]ARRY Stop: 05/26/17 06:01 Last Admin: 11/26/16 05:23 Dose: 5,000 unit Ceftriaxone Sodium 1,000 mg/ (Dextrose) 100 mls @ 200 mls/hr IVPB DAILY [facility] Stop: 05/26/17 09:01 Last Admin: 11/26/16 08:34 Dose: 200 mls/hr Azithromycin 500 mg/ Dextrose 250 mls @ 252 mls/hr IVPB Q24H [facility]ARR[facility] Stop: 05/27/17 10:01 Last Admin: 11/26/16 08:34 Dose: 252 mls/hr Dextrose (Dextrose 5%) 1,000 mls @ 100 mls/hr IVC .Q10H PRN PRN Reason: HYPOGLYCEMIA Stop: 05/27/17 07:30 Diltiazem HCl 125 mg/ Dextrose 125 mls @ 5 mls/hr IVC .Q24H LARRY; 5 MG/HR PRN Reason: Protocol Stop: 05/27/17 05:16 Last Admin: 11/26/16 06:01 Dose: 12.5 mg/hr, 12.5 mls/hr Insulin Human Lispro (Humalog) 0 units SQ HS LARRY PRN Reason: Protocol Stop: 05/27/17 21:01 Last Admin: 11/25/16 21:27 Dose: 3 units Insulin Human Lispro (Humalog) 0 units SQ TIDAC LARRY PRN Reason: Protocol Stop: 05/27/17 07:31 Last Admin: 11/26/16 08:35 Dose: 4 units Menthol (Cough Drops) 9.1 mg PO Q2H PRN PRN Reason: Cough Stop: 05/26/17 10:39 Last Admin: 11/24/16 17:35 Dose: 9.1 mg Methylprednisolone (Solu-Medrol) 60 mg IVP Q8HR [facility] Stop: 05/28/17 00:01 Last Admin: 11/26/16 08:33 Dose: 60 mg Morphine Sulfate (Morphine Sulfate) 2 mg IVP Q4HR PRN PRN Reason: Severe Pain (7-10) Stop: 05/26/17 05:37 Naloxone HCl (Narcan) 0.4 mg IVP Q2MIN PRN PRN Reason: Opioid Reversal Stop: 05/26/17 05:37 Ondansetron HCl (Zofran) 4 mg IVP Q8HR PRN PRN Reason: Nausea And Vomiting Stop: 04/16/18 05:37 Simvastatin (Zocor) 20 mg PO HS LARRY PRN Reason: Protocol Stop: 05/26/17 21:01 Last Admin: 11/25/16 21:27 Dose: 20 mg - Imaging and Cardiology Echo: report reviewed - EKG Interpretation EKG results cardiology: other (12 hr tele AVG HR 97, A-Fib) Consult Discharge Plan - Plan Referrals: NONE,PCP [Primary Care Provider] -
[2016-11-26] MEDS: Diltiazem CD (24hr) 180 MG CAPSULE PO SCH (12:58)
[2016-11-26] MEDS: Insulin DETEMIR 100 UNIT/ML X5UNITS SQ SCH ×2 (15:39→20:28)
[2016-11-26 17:46] LABS: Triiodothyronine (T3) Free < 1.00 pg/mL (1.71-3.71)
[2016-11-26] MEDS: 0.9 % Sodium Chloride 1,000 ML IVC SCH (19:16)
[2016-11-27] MEDS: methylPREDNISolone 125 MG/2 ML VIAL IVP SCH ×2 (00:25→08:55)
[2016-11-27] MEDS: Ipratropium/Albuterol Neb 3 ML IH SCH ×3 (04:21→11:06)
[2016-11-27] MEDS: Acetylcysteine 10% 2 ML INHSOL IH SCH ×3 (04:21→11:06)
[2016-11-27] MEDS: *HR* Heparin 5,000 UNIT/ML VIAL SQ SCH (06:03)
[2016-11-27 06:48] LABS: Basophils % 0.3 %; Hematocrit 34.7 % (37.5-50.1); Hemoglobin 11.8 g/dL (12.9-16.9); Lymphocytes # 0.5 K/mcL (0.6-4.6); Lymphocytes % 4.4 %; Mean Corpuscular Hemoglobin 31.7 pg (28.0-33.3); Mean Corpuscular Volume 93.3 fL (83.0-100.0); Mean Platelet Volume 9.9 fL (9.4-12.4); Monocytes # 0.4 K/mcL (0.0-1.3); Monocytes % 3.8 %; Neutrophils # 9.3 K/mcL (1.6-8.9); Platelet Count 241 K/mcL (140-400); Red Blood Count 3.72 M/mcL (4.19-5.50); Red Cell Distribution Width 14.1 % (11.5-14.5); Segmented Neutrophils % 89.5 %
[2016-11-27 06:59] LABS: BUN/Creatinine Ratio 21 (6-26); Blood Urea Nitrogen 14 mg/dL (8-26); Carbon Dioxide 28 mEq/L (19-29); Chloride 103 mEq/L (98-109); Glucose 142 mg/dL (70-99); Osmolality,Calculated 285 (280-300); Potassium 4.2 mEq/L (3.5-4.5); Sodium 136 mEq/L (136-145); eGFR For African Americans > 60 (> 60); eGFR For Non-African Americans > 60 (> 60)
[2016-11-27] MEDS: Budesonide/Formoterol 160/4.5 MDI IH SCH (07:45)
[2016-11-27] MEDS: Azithromycin 500 MG in D5% in Water 250 ML IVPB SCH (08:54)
[2016-11-27] MEDS: Diltiazem CD (24hr) 180 MG CAPSULE PO SCH (08:56)
[2016-11-27] MEDS: Insulin DETEMIR 100 UNIT/ML X5UNITS SQ SCH (08:56)
[2016-11-27] MEDS: Aspirin 81 MG TAB.CHEW PO SCH (08:56)
[2016-11-27] MEDS: Famotidine 20 MG TABLET PO SCH (08:56)
[2016-11-27] MEDS: Insulin LISPRO 300 UNITS/3 ML VIAL SQ SCH ×2 (08:57→11:41)
--- NOTE | 2016-11-27 10:42 | Event Note ---
Date of Encounter: 11/27/16 Time of Encounter: 10:41 - Cardiology Event Note 12 hr tele AVG HR 100, currently 80s-90s at bedside, A-Fib. On Cardizem CD 360mg daily and Lopressor 25mg BID--can uptitrate as necessary for HR control if necessary, as BP allows. [id number] 1--ASA only. Cardiology signing off. Reconsult PRN. Will coordinate outpt follow-up.
[2016-11-27 10:52] VITALS: BP 115/74
--- NOTE | 2016-11-27 12:05 | Discharge Summary ---
Date of Encounter: 11/27/16 Time of Encounter: 12:01 - Discharge Diagnosis (1) Atrial fibrillation with RVR Priority: Primary Status: Acute (2) Pneumonia Priority: Primary Status: Acute Qualifiers: Pneumonia type: due to unspecified organism Laterality: left Lung location: unspecified part of lung Qualified Code(s): J18.9 - Pneumonia, unspecified organism (3) Acute exacerbation of chronic obstructive airways disease Priority: Primary Status: Acute (4) Sepsis Priority: Primary Status: Resolved Qualifiers: Sepsis type: sepsis due to unspecified organism Qualified Code(s): A41.9 - Sepsis, unspecified organism (5) Acute respiratory failure with hypoxia Priority: Primary Status: Resolved (6) Tobacco abuse Priority: Secondary Status: Chronic - Discharge Medications Prescriptions: Aspirin 81 mg PO DAILY #30 tab.chew Diltiazem CD (24hr) [Cardizem CD] 360 mg PO DAILY #60 cap.er.24h levoFLOXacin [Levaquin] 500 mg PO DAILY #5 tablet Metoprolol [Lopressor] 25 mg PO BID #30 tablet predniSONE [PredniSONE] 60 mg PO DAILY 5 Days tablet Home Medications: Albuterol Sulfate [Ventolin Hfa] 18 gm IH Q2H PRN 11/24/16 [History] Budesonide/Formoterol 160/4.5 [Symbicort 160/4.5] 1 puff IH QID 11/24/16 [ History] Ipratropium [ATROVENT Inhaler] 0 gm IH Q6HR 11/24/16 [History] Aspirin 81 mg PO DAILY #30 tab.chew 11/27/16 [Rx] Diltiazem CD (24hr) [Cardizem CD] 360 mg PO DAILY #60 cap.er.24h 11/27/16 [Rx] Metoprolol [Lopressor] 25 mg PO BID #30 tablet 11/27/16 [Rx] levoFLOXacin [Levaquin] 500 mg PO DAILY #5 tablet 11/27/16 [Rx] predniSONE [PredniSONE] 60 mg PO DAILY 5 Days tablet 11/27/16 [Rx] Allergies/Adverse Reactions: 3 Allergy/AdvReac Type Severity Reaction Status Date / Time No Known Allergies Allergy Verified 11/24/16 00:57 Procedures/tests Complete & Pending: Procedures Performed prior 72 hours Category Date Time Status ECG 12 lead ECG [ECG] Routine Y 11/25/16 05:02 Completed EV echocardiogram Routine Y 11/25/16 10:43 Completed Date of admission: 11/24/16 06:47 Primary care physician: PCP NONE Consults: 11/25/16 09:39 Consult to Cardiology [CONS] Routine Comment: Consulting Provider: Shaun Moses Reason for Consult: new onset atrial fibrillation Call Completed: No 11/27/16 10:56 Consult to Occupational Therapy [CONS] Routine Comment: Evaluate, develop and implement POC Reason for Consult: weakness Consult to Physical Therapy [CONS] Routine Comment: Evaluate, develop and implement POC Reason for Consult: weakness 11/27/16 11:39 Consult to Limited Radiology Technician [CONS] Stat Reason for SW Consult: Patient wanting to sign out AMA and needs pcp set up Discharging clinician: Neelam Sandoval Anticipated date of discharge: 11/27/16 - Patient Status Disposition: Left Against Medical Advice Condition: Fair Functional capacity at discharge: independent ambulation Overall status at discharge: patient is not back to baseline - Discharge Instructions Follow Up With: NONE,PCP [Primary Care Provider] - Hospital course: Mr. Rojas is a 66 year old male with history of tobacco abuse and COPD, was admitted with shortness of breath and cough and palpitations. Patient was noted to be in acute exacerbation of COPD and was started on scheduled bronchodilators, IV steroids and empiric IV antibiotics. He also has possible underlying pneumonia as seen on chest x-ray. He continued to have chest congestion and cough and was started on when necessary Tessalon and inhalational Mucomyst with some improvement. He is currently saturating well on room air. He was noted to have developed new onset atrial fibrillation with rapid ventricular response and was started on IV Cardizem drip, eventually transitioned to oral Cardizem along with beta swapnil with good heart rate control. Aspirin only was recommended for anticoagulation due to CHADS-VASC score being 1. Cardiology was consulted and assisted with atrial fibrillation during this admission. Patient has poor outpatient follow-up with no primary care provider and he was recently released from senior care. He continues to have some wheezing and would benefit from at least another night of hospital stay. However, patient refused to acknowledge any further medical instructions, reported that he needed to be with the district lunchroom mother today to sign some legal paperwork and refused further medical management and decided to leave AGAINST MEDICAL ADVICE. He is alert and oriented and signed AMA papers. He was still provided with prescriptions for antibiotics, oral steroids and heart rate control medications. - Time Spent with Patient Total time spent providing and/or coordinating discharge services: Greater than 30 minutes (40 min) - Constitutional Vitals: Temp Pulse Resp BP Pulse Ox 97.3 F L 93 16 115/74 98 11/27/16 10:44 11/27/16 10:44 11/27/16 11:06 11/27/16 10:44 11/27/16 11:06 General appearance: Present: A&O X 3, answers questions appropriately - Respiratory Respiratory exam: Present: CTAB (coarse breath sounds B/L, improving end- expiratory wheezing and B/L rhonchi). Absent: accessory muscle use, rales, rhonchi, wheezes - Cardiovascular Cardiovascular exam: Present: irregular rhythm, +S1, +S2. Absent: diastolic murmur, gallop, rubs, systolic murmur
[2016-11-27] MEDS ORDERED: FLUARIX QUAD 2017-18 36MOS UP/PF 0.5 ML SYRINGE IM ONE (12:15)
== END 2016-11-27 13:10 | disposition left against medical advice (07) | DRG 871 ==
LOC: 3ANU → SUATTDRO 06:47
PROVIDERS: ADMIT Family Medicine; ATTEND Internal Medicine